=== PATIENT | female | born 1995 | race Caucasian/White ===

== ENCOUNTER → 2017-05-13 | Outpatient (CLI) | payer OTHER ==
--- NOTE | 2017-05-13 12:41 | MR ---
EXAMINATION TYPE: MR brain wo/w con DATE OF EXAM: 05/13/2017 COMPARISON: NONE HISTORY: Headaches TECHNIQUE: Multiplanar, multisequence images of the brain and brainstem is performed without and with IV contras t, utilizing 7.5 mL intravenous Gadavist . FINDINGS: Diffusion weighted images demonstrate no evidence of a recent infarct or other diffusion ab normality. There is no extra-axial fluid collection or significant white matter signal abnormality. The ventricular system and cisternal spaces are normal in size and appearance. The brain volume is age appropriate. Midline structures demonstrate normal morphology. The craniocervical junction appears within normal limits. Post contrast images demonstrate no abnormal enhancement. The dural venous sinuses appear pa tent. Minimal mucosal thickening is seen within the ethmoid sinuses. The remaining visualized sinuses are clear and the globes are intact. IMPRESSION: 1. No acute intracranial process, hemorrhage, midline shift, mass effect, white matter changes, or ab normal enhancement. 2. Minimal ethmoidal sinus mucosal thickening.
== END | disposition home or self-care (01) ==
LOC: RADMRIMAIN 11:31
PROVIDERS: ATTEND Psychiatry & Neurology Neurology
DX: J34.89 Other specified disorders of nose and nasal sinuses (principal); G44.201 Tension-type headache, unspecified, intractable
CPT/HCPCS: 70553; A9581

== ENCOUNTER 2019-11-13 15:07 | Emergency (ER) | payer OTHER ==
[2019-11-13 15:11] VITALS: TEMP 97.4
[2019-11-13] MEDS ORDERED: SODIUM CHLORIDE 0.9% 1,000 ML IV STA (15:52)
[2019-11-13 16:08] LABS: Basophils % (A) 0 %; Eosinophils # (A) 0.1 k/uL (0-0.7); Eosinophils % (A) 1 %; HCT 42.7 % (34.0-46.0); HGB 14.5 gm/dL (11.4-16.0); Lymphocytes # (A) 1.9 k/uL (1.0-4.8); Lymphocytes % (A) 44 %; MCH 30.2 pg (25.0-35.0); MCV 88.6 fL (80.0-100.0); Mean Platelet Volume 7.7; Monocytes # (A) 0.2 k/uL (0-1.0); Monocytes % (A) 5 %; Neutrophils # (A) 2.1 k/uL (1.3-7.7); Neutrophils % (A) 48 %; Platelet Count 200 k/uL (150-450); RBC 4.82 m/uL (3.80-5.40); RDW 12.3 % (11.5-15.5); WBC 4.4 k/uL (3.8-10.6)
[2019-11-13 16:10] LABS: Appearance,Urine Clear (Clear); Bacteria,Urine Rare /hpf; Bilirubin,Urine Negative (Negative); Blood,Urine Negative (Negative); Color,Urine Light Yellow; Glucose,Urine (UA) Negative (Negative); Ketones,Urine Negative (Negative); Leukocyte Esterase,Urine Small (Negative); Nitrite,Urine Negative (Negative); PH, Urine 7.5 (5.0-8.0); Protein,Urine Negative (Negative); RBC,Urine 1 /hpf (0-5); Specific Gravity,Urine 1.005 (1.001-1.035); Urobilinogen,Urine <2.0 mg/dL (<2.0); WBC,Urine 5 /hpf (0-5)
[2019-11-13 16:18] LABS: ALT 12 U/L (4-34); AST 19 U/L (14-36); African American GFR (CKD) >90 (>60 ml/min/1.73 sqM); Albumin 4.8 g/dL (3.5-5.0); Alkaline Phosphatase 50 U/L (38-126); Amphetamine Screen,Urine Not Detected (NotDetected); Anion Gap 11 mmol/L; Barbiturate Screen,Urine Not Detected (NotDetected); Benzodiazepines Screen,Urine Not Detected (NotDetected); Blood Urea Nitrogen 11 mg/dL (7-17); Carbon Dioxide 23 mmol/L (22-30); Chloride 107 mmol/L (98-107); Cocaine Screen,Urine Not Detected (NotDetected); Glucose 102 mg/dL (74-99); Methadone Screen, Urine Not Detected (NotDetected); Non-African American GFR(CKD) >90 (>60 ml/min/1.73 sqM); Opiate Screen,Urine Not Detected (NotDetected); Oxycodone Screen, Urine Not Detected (NotDetected); Phencyclidine Screen,Urine Not Detected (NotDetected); Potassium 3.7 mmol/L (3.5-5.1); Sodium 141 mmol/L (137-145); Total Bilirubin 0.4 mg/dL (0.2-1.3); Total Protein 7.5 g/dL (6.3-8.2); Tricyclic Antidepressant,Urine Not Detected (NotDetected); Urn Cannabinoid Scrn Not Detected (NotDetected)
--- NOTE | 2019-11-13 16:26 | XR ---
EXAMINATION TYPE: XR chest 2V DATE OF EXAM: 11/13/2019 COMPARISON: None HISTORY: 23-year-old female lightheadedness TECHNIQUE: PA and lateral views FINDINGS: The cardiomediastinal silhouette, aorta, and pulmonary vasculature are within normal limits. Lungs an d pleural spaces are clear. IMPRESSION: No acute cardiopulmonary process.
[2019-11-13 16:34] VITALS: RESP 18
--- NOTE | 2019-11-13 16:43 | ED ---
General Adult HPI - General Chief complaint: Dizziness Stated complaint: near syncope Time Seen by Provider: 11/13/19 15:15 Source: patient Mode of arrival: ambulatory Limitations: no limitations - History of Present Illness Initial comments: 23-year-old female with past medical history of anorexia currently with no active behaviors presenting to the emergency department today for chief complaint of presyncope. Patient states that she feels as though she is given a past on multiple occasions since Saturday she states initially began while driving. She states that she does not feel like the room is spinning, she states that she does not feel off balance she states she feels like she is about to faint. Patient denies any chest pain shortness of breath she states she occasionally feels palpitations. Patient states her mother does has history of SVT patient states she did have an episode of significant bradycardia when she had active anorexia age 11 for she was hospitalized at [facility] she states she has not had another episode since. patient denies any leg swelling denies denies history of active cancer she denies any previous dvt or PE. Patient denies any chest pain and pressure or pain with deep inspiration. patient denies hemoptysis cough or shortness of breath. 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 she denies a family history of sudden or HOCM. Patient denies nausea, abdominal pain or vomiting. Patient denies current symptoms. Patient denies sy ncopal episode. Remaining ROS (-). - Related Data Previous Rx's Medication Instructions Recorded Hydrocodone/Acetaminophen [[place] 1 each PO Q6HR PRN #20 tab 03/10/14 5-325] Ibuprofen [Motrin] 600 mg PO Q8HR PRN #30 tab 03/10/14 Allergies Allergy/AdvReac Type Severity Reaction Status Date / Time No Known Allergies Allergy Verified 11/13/19 15:11 Review of Systems ROS Statement: Those systems with pertinent positive or pertinent negative responses have been documented in the HPI. ROS Other: All systems not noted in ROS Statement are negative. Past Medical History Past Medical History: No Reported History History of Any Multi-Drug Resistant Organisms: None Reported Past Surgical History: Orthopedic Surgery Past Psychological History: No Psychological Hx Reported Smoking Status: Never smoker Past Alcohol Use History: None Reported Past Drug Use History: None Reported General Exam - General Exam Comments Initial Comments: General: The patient is awake and alert, in no distress, and does not appear acutely ill. Eye: +3 mm pupils are equal, round and reactive to light, extra-ocular movements are intact. No nystagmus. There is normal conjunctiva bilaterally. No signs of icterus. Ears, nose, mouth and throat: There are moist mucous membranes and no oral lesions. Neck: The neck is supple, there is no tenderness or JVD. Cardiovascular: There is a regular rate and rhythm. No murmur, rub or gallop is appreciated. Respiratory: Lungs are clear to auscultation, respirations are non-labored, breath sounds are equal. No wheezes, stridor, rales, or rhonchi. Gastrointestinal: Soft, non-distended, non-tender abdomen without masses or organomegaly noted. There is no rebound or guarding present. Musculoskeletal: Normal ROM, no tenderness. Strength 5/5. Sensation intact. Radial and DP pulses equal bilaterally 2+. Neurological: A&O x 3. CN II-XII intact, There are no obvious motor or sensory deficits. Coordination appears grossly intact. Speech is normal. Finger to nose [id number] smooth and coordinated bilaterally equal. Gait is without ataxia. Skin: Skin is warm and dry and no rashes or lesions are noted. No calf swelling, no LE edema, no calf pain. Psychiatric: Cooperative, appropriate mood & affect, normal judgment. Limitations: no limitations Course Vital Signs 11/13/19 11/13/19 11/13/19 15:09 16:00 17:00 Temperature 97.4 F L Pulse Rate 90 75 Pulse Rate [ 90 Sitting Warehouse Trainer] Pulse Rate [ 99 Standing Warehouse Trainer ] Pulse Rate [ 85 Supine Warehouse Trainer] Respiratory 20 18 Rate Blood Pressure 129/87 112/72 Blood Pressure 128/83 [Right Arm Sitting] Blood Pressure 140/86 [Right Arm Standing] Blood Pressure 117/57 [Right Arm Supine] O2 Sat by Pulse 99 98 Oximetry EKG Findings - EKG Comments: EKG Findings:: Ventricular rate 100 bpm, [place] interval 128 ms, QRS duration 80 ms, QT/QTC 338/436 small seconds. This is normal sinus rhythm no ST elevation or depression. No delta wave. No evidence of Brugada syndrome. EKG was percent interpreted and reviewed by myself as well as my attending provider Medical Decision Making - Medical Decision Making 23-year-old female presenting for presyncope. Patient did not have syncopal episode. Patient describes this lightheadedness feeling as though she was going to faint. EKG no acute findings reviewed by myself as well as attending provider. Chest x-ray revealed no cardiomegaly or vascular congestion. There is no leg swelling dimer negative troponin within normal limits. Patient has no chest pain or shortness of breath. Patient's orthostatics are negative. Patient states she has had decreased fluid intake. Patient was hydrated in the emergency department. I did not auscultate a murmur on physical examination. No focal neurological deficits. NO nystagmus, not described as room spinning, no ataxia. Sometimes symptoms occur when standing fast. At this time I feel patient is stable for discharge with further outpatient evaluation including Holter monitor and echocardiogram with strict return parameters for increasing symptoms or syncopal episode. Patient verbalized understanding. I did recommend against exertional activity as well as sports until patient is further evaluation. Patient verbalized understanding, and was discharged appearing well. Dr. Arauz attending also recommended discharge with further outpatient evaluation - Lab Data Result diagrams: 11/13/19 15:28 11/13/19 15:28 Lab Results 11/13/19 11/13/19 11/13/19 Range/Units 15:28 15:28 15:28 WBC 4.4 (3.8-10.6) k/uL RBC 4.82 (3.80-5.40) m/uL Hgb 14.5 (11.4-16.0) gm/dL Hct 42.7 (34.0-46.0) % MCV 88.6 (80.0-100.0) fL MCH 30.2 (25.0-35.0) pg MCHC 34.0 (31.0-37.0) g/dL RDW 12.3 (11.5-15.5) % Plt Count 200 (150-450) k/uL Neutrophils % 48 % Lymphocytes % 44 % Monocytes % 5 % Eosinophils % 1 % Basophils % 0 % Neutrophils # 2.1 (1.3-7.7) k/uL Lymphocytes # 1.9 (1.0-4.8) k/uL Monocytes # 0.2 (0-1.0) k/uL Eosinophils # 0.1 (0-0.7) k/uL Basophils # 0.0 (0-0.2) k/uL D-Dimer <0.17 (<0.60) mg/L FEU Sodium (137-145) mmol/L Potassium (3.5-5.1) mmol/L Chloride (98-107) mmol/L Carbon Dioxide (22-30) mmol/L Anion Gap mmol/L BUN (7-17) mg/dL Creatinine (0.52-1.04) mg/dL Est GFR (CKD-EPI)AfAm (>60 ml/min/1.73 sqM) Est GFR (CKD-EPI)NonAf (>60 ml/min/1.73 sqM) Glucose (74-99) mg/dL Calcium (8.4-10.2) mg/dL Total Bilirubin (0.2-1.3) mg/dL AST (14-36) U/L ALT (4-34) U/L Alkaline Phosphatase (38-126) U/L Troponin I (0.000-0.034) ng/mL Total Protein (6.3-8.2) g/dL Albumin (3.5-5.0) g/dL Urine Color Light Yellow Urine Appearance Clear (Clear) Urine pH 7.5 (5.0-8.0) Ur Specific [place] 1.005 (1.001-1.035) Urine Protein Negative (Negative) Urine Glucose (UA) Negative (Negative) Urine Ketones Negative (Negative) Urine Blood Negative (Negative) Urine Nitrite Negative (Negative) Urine Bilirubin Negative (Negative) Urine Urobilinogen <2.0 (<2.0) mg/dL Ur Leukocyte Esterase Small H (Negative) Urine RBC 1 (0-5) /hpf Urine WBC 5 (0-5) /hpf Urine Bacteria Rare H (None) /hpf Urine HCG, Qual (Not Detectd) Urine Opiates Screen Not Detected (NotDetected) Ur Oxycodone Screen Not Detected (NotDetected) Urine Methadone Screen Not Detected (NotDetected) Ur Propoxyphene Screen Not Detected (NotDetected) Ur Barbiturates Screen Not Detected (NotDetected) U Tricyclic Antidepress Not Detected (NotDetected) Ur Phencyclidine Scrn Not Detected (NotDetected) Ur Amphetamines Screen Not Detected (NotDetected) U Methamphetamines Scrn Not Detected (NotDetected) U Benzodiazepines Scrn Not Detected (NotDetected) Urine Cocaine Screen Not Detected (NotDetected) U Marijuana (THC) Screen Not Detected (NotDetected) 11/13/19 11/13/19 11/13/19 Range/Units 15:28 15:28 15:28 WBC (3.8-10.6) k/uL RBC (3.80-5.40) m/uL Hgb (11.4-16.0) gm/dL Hct (34.0-46.0) % MCV (80.0-100.0) fL MCH (25.0-35.0) pg MCHC (31.0-37.0) g/dL RDW (11.5-15.5) % Plt Count (150-450) k/uL Neutrophils % % Lymphocytes % % Monocytes % % Eosinophils % % Basophils % % Neutrophils # (1.3-7.7) k/uL Lymphocytes # (1.0-4.8) k/uL Monocytes # (0-1.0) k/uL Eosinophils # (0-0.7) k/uL Basophils # (0-0.2) k/uL D-Dimer (<0.60) mg/L FEU Sodium 141 (137-145) mmol/L Potassium 3.7 (3.5-5.1) mmol/L Chloride 107 (98-107) mmol/L Carbon Dioxide 23 (22-30) mmol/L Anion Gap 11 mmol/L BUN 11 (7-17) mg/dL Creatinine 0.68 (0.52-1.04) mg/dL Est GFR (CKD-EPI)AfAm >90 (>60 ml/min/1.73 sqM) Est GFR (CKD-EPI)NonAf >90 (>60 ml/min/1.73 sqM) Glucose 102 H (74-99) mg/dL Calcium 10.0 (8.4-10.2) mg/dL Total Bilirubin 0.4 (0.2-1.3) mg/dL AST 19 (14-36) U/L ALT 12 (4-34) U/L Alkaline Phosphatase 50 (38-126) U/L Troponin I <0.012 (0.000-0.034) ng/mL Total Protein 7.5 (6.3-8.2) g/dL Albumin 4.8 (3.5-5.0) g/dL Urine Color Urine Appearance (Clear) Urine pH (5.0-8.0) Ur Specific [place] (1.001-1.035) Urine Protein (Negative) Urine Glucose (UA) (Negative) Urine Ketones (Negative) Urine Blood (Negative) Urine Nitrite (Negative) Urine Bilirubin (Negative) Urine Urobilinogen (<2.0) mg/dL Ur Leukocyte Esterase (Negative) Urine RBC (0-5) /hpf Urine WBC (0-5) /hpf Urine Bacteria (None) /hpf Urine HCG, Qual Not Detected (Not Detectd) Urine Opiates Screen (NotDetected) Ur Oxycodone Screen (NotDetected) Urine Methadone Screen (NotDetected) Ur Propoxyphene Screen (NotDetected) Ur Barbiturates Screen (NotDetected) U Tricyclic Antidepress (NotDetected) Ur Phencyclidine Scrn (NotDetected) Ur Amphetamines Screen (NotDetected) U Methamphetamines Scrn (NotDetected) U Benzodiazepines Scrn (NotDetected) Urine Cocaine Screen (NotDetected) U Marijuana (THC) Screen (NotDetected) Disposition Clinical Impression: Pre-syncope, Lightheadedness Disposition: HOME SELF-CARE Condition: Good Instructions (If sedation given, give patient instructions): Near Syncope (ED) Additional Instructions: Please use medication as discussed. Please follow-up with family doctor in the next 2 days. Please avoid sport or exertional activities until further evaluation holter/echo outpatient. Please return to emergency room if the symptoms increase or worsen or for any other concerns. Is patient prescribed a controlled substance at d/c from ED?: No Referrals: Isak Infante MD [Primary Care Provider] - 1-2 days Time of Disposition: 16:54
[2019-11-13 17:04] VITALS: BP 117/57; PULSE 85
== END 2019-11-13 17:38 | disposition home or self-care (01) ==
LOC: EC 15:07
DX: R42 Dizziness and giddiness (principal); R55 Syncope and collapse
CPT/HCPCS: 36415; 71046; 80053; 80306; 81001; 81025; 84484; 85025; 85379; 93005; 96360; 99284

== ENCOUNTER 2019-11-17 11:33 | Emergency (ER) | payer OTHER ==
[2019-11-17 11:41] VITALS: TEMP 98.2
[2019-11-17] MEDS ORDERED: IPRATROPIUM-ALBUTEROL 3 ML NEB INHALATION STA (11:58)
--- NOTE | 2019-11-17 12:10 | XR ---
EXAMINATION TYPE: XR chest 2V DATE OF EXAM: 11/17/2019 COMPARISON: 11/13/2019 TECHNIQUE: PA and lateral views submitted. HISTORY: Shortness of breath FINDINGS: The lungs are clear and there is no pneumothorax, pleural effusion, or focal pneumonia. Heart size stable and within normal limits. No evidence of overt failure. IMPRESSION: 1. No acute process.
[2019-11-17] MEDS ORDERED: predniSONE 50 MG TAB PO STA (12:38)
--- NOTE | 2019-11-17 12:42 | ED ---
SOB HPI - General Chief Complaint: Shortness of Breath Stated Complaint: poss allergic reaction Time Seen by Provider: 11/17/19 11:47 Source: patient, RN notes reviewed Mode of arrival: ambulatory Limitations: no limitations - History of Present Illness Initial Comments: 23-year-old female presents emergency Department chief complaint of difficulty breathing. Patient states that certain last 24 hours she does have a history of asthma. Patient does not have current inhaler or nebulizer. Patient states that she does feel well when she tries a deep breath or shortness of cough she feels she can move air better. Patient is concerned that maybe reaction to amoxicillin though she has no rash or difficult to swallow sore throat. Patient did just her on amoxicillin for an ear infection. - Related Data Previous Rx's Medication Instructions Recorded Hydrocodone/Acetaminophen [[place] 1 each PO Q6HR PRN #20 tab 03/10/14 5-325] Ibuprofen [Motrin] 600 mg PO Q8HR PRN #30 tab 03/10/14 Albuterol Nebulized [Ventolin 2.5 mg INHALATION Q4H PRN #25 nebu 11/17/19 Nebulized] Albuterol Sulfate [Proair Hfa] 1 - 2 puff INHALATION Q4HR PRN #1 11/17/19 inhaler predniSONE 50 mg PO DAILY #4 tab 11/17/19 Allergies Allergy/AdvReac Type Severity Reaction Status Date / Time No Known Allergies Allergy Verified 11/17/19 11:38 Review of Systems ROS Statement: Those systems with pertinent positive or pertinent negative responses have been documented in the HPI. ROS Other: All systems not noted in ROS Statement are negative. Past Medical History Past Medical History: Asthma History of Any Multi-Drug Resistant Organisms: None Reported Past Surgical History: Orthopedic Surgery Past Psychological History: No Psychological Hx Reported Smoking Status: Never smoker Past Alcohol Use History: None Reported Past Drug Use History: None Reported General Exam Limitations: no limitations General appearance: alert, in no apparent distress Head exam: Present: atraumatic, normocephalic, normal inspection Eye exam: Present: normal appearance, PERRL, EOMI. Absent: scleral icterus, conjunctival injection, periorbital swelling ENT exam: Present: normal exam, normal oropharynx, mucous membranes moist Neck exam: Present: normal inspection, full ROM. Absent: tenderness, meningismus, lymphadenopathy Respiratory exam: Present: wheezes (Animal), decreased breath sounds. Absent: normal lung sounds bilaterally, respiratory distress, rales, rhonchi, stridor Cardiovascular Exam: Present: regular rate, normal rhythm, normal heart sounds. Absent: systolic murmur, diastolic murmur, rubs, gallop, clicks Course Vital Signs 11/17/19 11/17/19 11:38 12:19 Temperature 98.2 F Pulse Rate 89 92 Respiratory 16 Rate Blood Pressure 134/89 O2 Sat by Pulse 99 Oximetry - Reevaluation(s) Reevaluation #1: 11/17/19 12:40 Patient was improved after treatment. Medical Decision Making - Medical Decision Making Chest x-ray unremarkable patient presented after DuoNeb treatment. I do feel this is related to her asthma other than ALLERGIC reaction. Patient given prednisone, albuterol treatments. Return parameters were discussed. Disposition Clinical Impression: Mild asthma exacerbation Disposition: HOME SELF-CARE Condition: Stable Instructions (If sedation given, give patient instructions): Asthma (ED) Additional Instructions: Please return to the Emergency Department if symptoms worsen or any other concerns. Prescriptions: predniSONE 50 mg PO DAILY #4 tab Albuterol Sulfate [Proair Hfa] 1 - 2 puff INHALATION Q4HR PRN #1 inhaler PRN Reason: difficulty in breathing Albuterol Nebulized [Ventolin Nebulized] 2.5 mg INHALATION Q4H PRN #25 nebu PRN Reason: difficulty in breathing Is patient prescribed a controlled substance at d/c from ED?: No Referrals: Isak Infante MD [Primary Care Provider] - 1-2 days Time of Disposition: 12:42
[2019-11-17 13:33] VITALS: BP 106/79; PULSE 97; RESP 18
== END 2019-11-17 13:32 | disposition home or self-care (01) ==
LOC: EC 11:33
DX: J45.901 Unspecified asthma with (acute) exacerbation (principal); Z86.19 Personal history of other infectious and parasitic diseases
CPT/HCPCS: 94640; 71046; 99285; J7512

== ENCOUNTER 2019-11-26 21:20 | Emergency (ER) | payer OTHER ==
[2019-11-26 21:28] VITALS: TEMP 98.1
[2019-11-26 21:57] LABS: Basophils % (A) 0 %; Eosinophils # (A) 0.1 k/uL (0-0.7); Eosinophils % (A) 2 %; HGB 14.3 gm/dL (11.4-16.0); Lymphocytes # (A) 2.8 k/uL (1.0-4.8); Lymphocytes % (A) 44 %; MCH 30.3 pg (25.0-35.0); MCV 89.3 fL (80.0-100.0); Mean Platelet Volume 7.8; Monocytes # (A) 0.4 k/uL (0-1.0); Monocytes % (A) 7 %; Neutrophils # (A) 2.8 k/uL (1.3-7.7); Neutrophils % (A) 45 %; Platelet Count 193 k/uL (150-450); RDW 12.4 % (11.5-15.5); WBC 6.3 k/uL (3.8-10.6)
[2019-11-26 22:04] LABS: ALT 15 U/L (4-34); AST 20 U/L (14-36); African American GFR (CKD) >90 (>60 ml/min/1.73 sqM); Albumin 4.7 g/dL (3.5-5.0); Alkaline Phosphatase 53 U/L (38-126); Anion Gap 9 mmol/L; Blood Urea Nitrogen 12 mg/dL (7-17); Calcium 9.3 mg/dL (8.4-10.2); Carbon Dioxide 25 mmol/L (22-30); Chloride 105 mmol/L (98-107); Glucose 102 mg/dL (74-99); Non-African American GFR(CKD) >90 (>60 ml/min/1.73 sqM); Potassium 3.9 mmol/L (3.5-5.1); Sodium 139 mmol/L (137-145); Total Bilirubin 0.4 mg/dL (0.2-1.3); Total Protein 7.4 g/dL (6.3-8.2)
[2019-11-26 22:10] LABS: D-Dimer 0.19 mg/L FEU (<0.60); INR 0.9 (<1.2); Partial Thromboplastin Time 23.5 sec (22.0-30.0); Prothrombin Time 9.6 sec (9.0-12.0)
--- NOTE | 2019-11-26 22:28 | XR ---
EXAMINATION TYPE: XR chest 2V DATE OF EXAM: 11/26/2019 COMPARISON: 11/17/2019 HISTORY: Short of breath TECHNIQUE: FINDINGS: Heart and mediastinum are normal. Lungs are clear. Diaphragm is normal. Bony thorax appears normal. IMPRESSION: Normal chest. No change.
--- NOTE | 2019-11-26 23:04 | CT ---
EXAMINATION TYPE: CT chest angio for PE DATE OF EXAM: 11/26/2019 COMPARISON: None HISTORY: sob CT DLP: 447.1 mGycm Automated exposure control for dose reduction was used. CONTRAST: Performed with IV Contrast, patient injected with 90 mL of Isovue 300. There are 3-D post processed images. The lungs are clear of infiltrate. There is no evidence of a pulmonary mass. There is no mediastinal adenopathy. There are no hilar masses. Heart appears normal. There is no pericardial effusion. There is no pleural effusion. Thoracic aorta appears normal. There is no aneurysm or dissection. There is normal contrast opacifica tion of the pulmonary arteries. There are no filling defects. There is normal alignment of the thoracic vertebra. There is no compression fracture. The ribs appear intact. IMPRESSION: Negative exam. No evidence of pulmonary embolism.
--- NOTE | 2019-11-26 23:15 | ED ---
Arrhythmia/Palpitations HPI - General Chief Complaint: Arrhythmia/Palpitations Stated Complaint: Fast Heart Rate Time Seen by Provider: 11/26/19 21:54 Source: patient Mode of arrival: ambulatory Limitations: no limitations - History of Present Illness Initial Comments: Patient is a 23-year-old female presenting to emergency Department with complaints of palpitations been ongoing for 2 weeks. Patient states she was seen in the ER a week ago and was worked up for possible ALLERGIC reaction versus asthma exacerbation. She was put on steroids. Patient states she'll he took a few days and then secondary to the side effects. Patient states her symptoms seemed to increase when she is standing and feels palpitations. She has a heart rate to her on her bottom and states that her memory has been going over 100 on multiple occasions, high as 140s over the last 2 weeks. She she denies history of recent travel. She does state she started having some mild tightness of her left calf. There is no redness or swelling of the calf. She denies history of blood clots. Does admit to being on the depo shot. She denies chest pain, shortness of breath, abdominal pain, nausea, vomiting. Patient states she has occasionally felt lightheaded during these episodes. She has no other pertinent past medical history other than asthma. She denies any fevers or chills. She denies a cough. She has no other complaints at this time. Upon arrival to the ER, pulse is 104. Rest of vitals are normal. - Related Data Previous Rx's Medication Instructions Recorded Hydrocodone/Acetaminophen [[place] 1 each PO Q6HR PRN #20 tab 03/10/14 5-325] Ibuprofen [Motrin] 600 mg PO Q8HR PRN #30 tab 03/10/14 Albuterol Nebulized [Ventolin 2.5 mg INHALATION Q4H PRN #25 nebu 11/17/19 Nebulized] Albuterol Sulfate [Proair Hfa] 1 - 2 puff INHALATION Q4HR PRN #1 11/17/19 inhaler predniSONE 50 mg PO DAILY #4 tab 11/17/19 Allergies Allergy/AdvReac Type Severity Reaction Status Date / Time No Known Allergies Allergy Verified 11/26/19 21:26 Review of Systems ROS Statement: Those systems with pertinent positive or pertinent negative responses have been documented in the HPI. ROS Other: All systems not noted in ROS Statement are negative. Past Medical History Past Medical History: Asthma History of Any Multi-Drug Resistant Organisms: None Reported Past Surgical History: Orthopedic Surgery Past Psychological History: No Psychological Hx Reported Smoking Status: Never smoker Past Alcohol Use History: None Reported Past Drug Use History: None Reported General Exam - General Exam Comments Initial Comments: GENERAL: Well-appearing, well-nourished and in no acute distress. HEAD: Atraumatic, normocephalic. EYES: Pupils equal round and reactive to light, extraocular movements intact, sclera anicteric, conjunctiva are normal. ENT: TMs normal, nares patent, oropharynx clear without exudates. Moist mucous membranes. NECK: Normal range of motion, supple without lymphadenopathy or JVD. LUNGS: Breath sounds clear to auscultation bilaterally and equal. No wheezes rales or rhonchi. HEART: Slightly tachycardia rate and rhythm without murmurs, rubs or gallops. ABDOMEN: Soft, nontender, normoactive bowel sounds. No guarding, no rebound. No masses appreciated. : Deferred EXTREMITIES: Patient has no pain to palpation of left or right calf. She does admit to mild tightness of her left calf. There is no erythema or edema present. Neurovascular intact. No clubbing or cyanosis. NEUROLOGICAL: Cranial nerves II through XII grossly intact. Normal speech, normal gait. PSYCH: Normal mood, normal affect. SKIN: Warm, Dry, normal turgor, no rashes or lesions noted. Limitations: no limitations Course Vital Signs 11/26/19 11/26/19 21:26 23:51 Temperature 98.1 F 98.1 F Pulse Rate 104 H 92 Respiratory 16 18 Rate Blood Pressure 121/81 118/72 O2 Sat by Pulse 100 100 Oximetry EKG Findings - EKG Comments: EKG Findings:: Ventricular rate 100, OH interval 118, QTC 436. Normal sinus rhythm. No acute ST segment changes. Similar to previous EKG on 11/13/2019 Medical Decision Making - Medical Decision Making Patient is a 23-year-old female presenting with palpitations that been intermittent for 2 weeks. She denies chest pain. Denies history of blood clots. No recent travel. No fevers. Vital signs are stable. EKG shows no acute changes. No signs of ischemia. Lab work is unremarkable, d-dimer is norm al. Patient is not . Chest x-ray showed no acute findings. Discussed findings with the patient and they were still concerned for a possible PE. A CTA of the chest was obtained and shows no evidence of PE. I discussed these findings with the patient. We discussed the possibility of her symptoms being related to anxiety. She is stable for discharge at this time. I do not think this is infectious process. She will follow-up with her PCP which she has an appointment for tomorrow as well as cardiology which she has an appointment for in one week. Return parameters were discussed with the patient she verbalized understanding. Patient is agreement with this plan of care. Case discussed with Dr. Lyman. - Lab Data Result diagrams: 11/26/19 21:37 11/26/19 21:37 Lab Results 11/26/19 11/26/19 11/26/19 Range/Units 21:37 21:37 21:37 WBC 6.3 (3.8-10.6) k/uL RBC 4.70 (3.80-5.40) m/uL Hgb 14.3 (11.4-16.0) gm/dL Hct 42.0 (34.0-46.0) % MCV 89.3 (80.0-100.0) fL MCH 30.3 (25.0-35.0) pg MCHC 34.0 (31.0-37.0) g/dL RDW 12.4 (11.5-15.5) % Plt Count 193 (150-450) k/uL Neutrophils % 45 % Lymphocytes % 44 % Monocytes % 7 % Eosinophils % 2 % Basophils % 0 % Neutrophils # 2.8 (1.3-7.7) k/uL Lymphocytes # 2.8 (1.0-4.8) k/uL Monocytes # 0.4 (0-1.0) k/uL Eosinophils # 0.1 (0-0.7) k/uL Basophils # 0.0 (0-0.2) k/uL PT 9.6 (9.0-12.0) sec INR 0.9 (<1.2) APTT 23.5 (22.0-30.0) sec D-Dimer 0.19 (<0.60) mg/L FEU Sodium 139 (137-145) mmol/L Potassium 3.9 (3.5-5.1) mmol/L Chloride 105 (98-107) mmol/L Carbon Dioxide 25 (22-30) mmol/L Anion Gap 9 mmol/L BUN 12 (7-17) mg/dL Creatinine 0.77 (0.52-1.04) mg/dL Est GFR (CKD-EPI)AfAm >90 (>60 ml/min/1.73 sqM) Est GFR (CKD-EPI)NonAf >90 (>60 ml/min/1.73 sqM) Glucose 102 H (74-99) mg/dL Calcium 9.3 (8.4-10.2) mg/dL Total Bilirubin 0.4 (0.2-1.3) mg/dL AST 20 (14-36) U/L ALT 15 (4-34) U/L Alkaline Phosphatase 53 (38-126) U/L Total Protein 7.4 (6.3-8.2) g/dL Albumin 4.7 (3.5-5.0) g/dL Urine HCG, Qual (Not Detectd) 11/26/19 Range/Units 22:00 WBC (3.8-10.6) k/uL RBC (3.80-5.40) m/uL Hgb (11.4-16.0) gm/dL Hct (34.0-46.0) % MCV (80.0-100.0) fL MCH (25.0-35.0) pg MCHC (31.0-37.0) g/dL RDW (11.5-15.5) % Plt Count (150-450) k/uL Neutrophils % % Lymphocytes % % Monocytes % % Eosinophils % % Basophils % % Neutrophils # (1.3-7.7) k/uL Lymphocytes # (1.0-4.8) k/uL Monocytes # (0-1.0) k/uL Eosinophils # (0-0.7) k/uL Basophils # (0-0.2) k/uL PT (9.0-12.0) sec INR (<1.2) APTT (22.0-30.0) sec D-Dimer (<0.60) mg/L FEU Sodium (137-145) mmol/L Potassium (3.5-5.1) mmol/L Chloride (98-107) mmol/L Carbon Dioxide (22-30) mmol/L Anion Gap mmol/L BUN (7-17) mg/dL Creatinine (0.52-1.04) mg/dL Est GFR (CKD-EPI)AfAm (>60 ml/min/1.73 sqM) Est GFR (CKD-EPI)NonAf (>60 ml/min/1.73 sqM) Glucose (74-99) mg/dL Calcium (8.4-10.2) mg/dL Total Bilirubin (0.2-1.3) mg/dL AST (14-36) U/L ALT (4-34) U/L Alkaline Phosphatase (38-126) U/L Total Protein (6.3-8.2) g/dL Albumin (3.5-5.0) g/dL Urine HCG, Qual Not Detected (Not Detectd) Disposition Clinical Impression: Palpitations Disposition: HOME SELF-CARE Condition: Stable Instructions (If sedation given, give patient instructions): Heart Palpitations (ED) Additional Instructions: Please return to the Emergency Department if symptoms worsen or any other concerns. Follow-up with PCP and cardiology as discussed. Is patient prescribed a controlled substance at d/c from ED?: No Referrals: Isak Infante MD [Primary Care Provider] - 1-2 days Shruti Baum MD [STAFF PHYSICIAN] - 1-2 days
[2019-11-26 23:52] VITALS: BP 118/72; PULSE 92; RESP 18
== END 2019-11-26 23:54 | disposition home or self-care (01) ==
LOC: EC 21:20
DX: R00.2 Palpitations (principal); R00.0 Tachycardia, unspecified; M62.462 Contracture of muscle, left lower leg
CPT/HCPCS: 36415; 93005; 85379; 80053; 85025; 85610; 85730; 81025; 71046; 71275; 99285; Q9967

== ENCOUNTER 2020-05-17 07:52 | Day surgery (SDC) | payer OTHER ==
[2020-05-12 10:19] VITALS: BMI 33.3
[~2020-05-17 07:52] MED LIST: SODIUM CHLORIDE 0.9% 1,000 ML IV SCH
[2020-05-17 08:27] VITALS: BP 122/78; PULSE 96; RESP 16; TEMP 98.7
[2020-05-17] MEDS ORDERED: IV FLUID CONTINUATION 1,000 ML IV ONE (09:11)
--- NOTE | 2020-05-19 18:56 | P.PCN ---
Preoperative Diagnosis: Diagnosis Recurrent presyncope Twelve-lead EKG Sinus mechanism normal AR narrow QRS normal ST segments Normal heart rates Tilt table test Tilt table test per protocol Baseline blood pressure 140/63 mmHg Baseline heart rate in the 70s sinus mechanism Patient was tilted upright at an angle of 70 per protocol Patient's blood pressure remained stable for about 40 minutes. She experienced sinus tachycardia followed by a sudden drop in blood pressure. She felt heart became diaphoretic and her blood pressure was unrecordable and she lost consciousness briefly. She was laid supine. Her blood pressure normalized along with heart rate Impression Normal twelve-lead ECG Neurocardiogenic response to upright tilting
== END 2020-05-17 10:45 | disposition home or self-care (01) ==
LOC: CATHEP 07:52
PROVIDERS: ATTEND Internal Medicine Clinical Cardiac Electrophysiology
DX: R55 Syncope and collapse (principal); I47.1 Supraventricular tachycardia; Z79.3 Long term (current) use of hormonal contraceptives; Z79.51 Long term (current) use of inhaled steroids; Z79.899 Other long term (current) drug therapy
CPT/HCPCS: 84703; 93660

== ENCOUNTER → 2020-05-24 | Outpatient (CLI) | payer OTHER ==
--- NOTE | 2020-05-24 18:34 | XR ---
EXAMINATION TYPE: XR foot complete LT DATE OF EXAM: 05/24/2020 CLINICAL HISTORY: Pain and bruising at fourth and fifth metatarsals after injury one week ago TECHNIQUE: Frontal, lateral, and oblique images of the left foot are obtained. COMPARISON: None FINDINGS: There is no acute fracture/dislocation evident in the left foot. The joint spaces in the left foot appear within normal limits. The overlying soft tissue appears unremarkable. IMPRESSION: There is no acute fracture or dislocation in the left foot.
== END | disposition home or self-care (01) ==
LOC: RAD 16:44
PROVIDERS: ATTEND Family Medicine
DX: M79.672 Pain in left foot (principal)